=== PATIENT | male | born 1995 | race Two or more races ===

== ENCOUNTER 2025-04-03 18:38 | Emergency (ER) | payer OTHER ==
[~2025-04-03] VITALS: Ht 190.5 cm; Wt 80.0 kg
[2025-04-03 18:41] VITALS: O2SAT 98
[2025-04-03] MEDS: ONDANSETRON 4MG ODT PO ONE (19:33)
[2025-04-03] MEDS: FAMOTIDINE 20MG TABLET PO ONE (19:33)
[2025-04-03] MEDS: ACETAMINOPHEN 325MG TABLET PO ONE (19:33)
[2025-04-03 19:47] LABS: CLARITY URINE CLOUDY (CLEAR); COLOR URINE DARK YELLOW (YELLOW); GLUCOSE URINE NEGATIVE (NEGATIVE); KETONES URINE TRACE (NEGATIVE); LEUKOCYTE ESTERASE URINE 3+ (NEGATIVE); NITRITE URINE NEGATIVE (NEGATIVE); OCCULT BLOOD URINE NEGATIVE (NEGATIVE); PH URINE 8.0 (4.5-8.0); PROTEIN URINE TRACE (NEGATIVE); SPECIFIC GRAVITY URINE 1.021 (1.005-1.030); UROBILINOGEN URINE 4.0 E.U./dL (0.2-1.0)
[2025-04-03 20:05] LABS: BACTERIA URINE 2+; RBC URINE NONE SEEN /hpf (0-2); SQUAMOUS EPITHELIAL CELL URINE RARE /lpf (RARE/1+)
[2025-04-03 20:08] LABS: *AMPHETAMINES SCREEN URINE PRESUMPTIVE POSITIVE (NEGATIVE); *BARBITURATES SCREEN URINE NEGATIVE (NEGATIVE); *BENZODIAZEPINES SCREEN URINE NEGATIVE (NEGATIVE); *COCAINE SCREEN URINE PRESUMPTIVE POSITIVE (NEGATIVE); CANNABINOID URINE SCREEN NEGATIVE (NEGATIVE); ECSTASY MDMA SCREEN URINE NEGATIVE (NEGATIVE); METHADONE URINE SCREEN NEGATIVE (NEGATIVE); OPIATES URINE SCREEN NEGATIVE (NEGATIVE); PHENCYCLIDINE URINE SCREEN NEGATIVE (NEGATIVE)
[2025-04-03 20:45] LABS: INFLUENZA TYPE A Indeterminate (Pres. Neg.)
[2025-04-03 20:46] LABS: INFLUENZA TYPE B Presumptive Negative (Pres. Neg.); RESPIRATORY SYNCYTIAL VIRUS Not Detected (Not Detectd)
[2025-04-03 21:06] LABS: BASOPHILS % 0.5 % (0.0-2.0); EOSINOPHILS % 0.1 % (0.0-5.0); HEMATOCRIT. 44.3 % (42.0-52.0); HEMOGLOBIN. 15.0 g/dL (14.0-18.0); LYMPHOCYTES % 10.0 % (20.0-50.0); MEAN PLATELET VOLUME 8.3 fl (7.4-10.4); MONOCYTES % 6.8 % (2.0-8.0); NEUTROPHILS % 82.6 % (40.0-76.0); PLATELET 240 x1000/uL (130-400); RED BLOOD CELL COUNT 5.14 mill/uL (4.7-6.1); RED CELL DISTRIBUTION WIDTH 11.9 % (11.6-14.6)
[2025-04-03] MEDS: KETOROLAC 30MG/ML VIAL IM ONE (21:08)
[2025-04-03] MEDS: CEFTRIAXONE SODIUM 500MG VIAL IM ONE (21:08)
[2025-04-03] MEDS: DOXYCYCLINE HYCLATE 100MG CAPSULE PO ONE (21:09)
[2025-04-03] MEDS: LIDOCAINE HCL 1% 20ML VIAL INFIL ONE (21:19)
[2025-04-03 21:20] LABS: CREATININE 1.1 mg/dL (0.6-1.3)
[2025-04-03 21:21] LABS: ETHANOL BLOOD < 10 mg/dL (<10); UREA NITROGEN BLOOD 7 mg/dL (9-23)
[2025-04-03 21:22] LABS: ASPARTATE AMINOTRANSFERASE 26 IU/L (<34); BILIRUBIN DIRECT 0.3 mg/dL (<=3.0)
[2025-04-03 21:23] LABS: BILIRUBIN TOTAL 0.9 mg/dL (0.1-1.0); PROTEIN TOTAL 7.1 g/dL (6.0-8.3)
[2025-04-03] MEDS ORDERED: DOXY100T2 MT (22:01)
[2025-04-03 22:13] VITALS: BP 109/66; PULSE 95; RESP 18; TEMP 36.8; O2SAT 98
[2025-04-03] MEDS: POTASSIUM CHLORIDE 20MEQ TABLET SR PO ONE (22:17)
[2025-04-05 19:09] LABS: CHLAMYDIA TRACHOMATIS NAA Negative (Negative); NEISSERIA GONORRHOEAE NAA Positive (Negative)
== END 2025-04-03 22:17 | disposition home or self-care (01) ==
LOC: ER 18:38
DX: N39.0 Urinary tract infection, site not specified (principal); Z20.822 Contact with and (suspected) exposure to COVID-19; Z79.899 Other long term (current) drug therapy
CPT/HCPCS: 87491; 87591; 80076; 80305; 80048; 81003; 80320; 83690; 85025; 87420; 87086; 87804 ×2; 36415; 76705; 96372; 99285; 87426; Q0162; J0696; J1885; Z7610; G0480